=== PATIENT | female | born 1995 | race Caucasian/White ===

== ENCOUNTER 2018-12-12 17:10 | Emergency (ER) | payer SELFPAY ==
[~2018-12-12] VITALS: Ht 157.5 cm; Wt 62.7 kg
[2018-12-12 17:12] VITALS: BP 121/64; TEMP 98.4
[2018-12-12] MEDS ORDERED: LEXAPRO 10MG10 MG PO (19:01)
[2018-12-12] MEDS ORDERED: AMBIEN 5MG TABLE5 MG PO (19:02)
[2018-12-12 21:27] VITALS: PULSE 75
== END 2018-12-12 21:30 | disposition home or self-care (01) ==
LOC: COL.ER 17:10
DX: S16.1XXA Strain of muscle, fascia and tendon at neck level, initial encounter (principal); F32.9 Major depressive disorder, single episode, unspecified; F43.10 Post-traumatic stress disorder, unspecified; F40.10 Social phobia, unspecified; R40.2412 Glasgow coma scale score 13-15, at arrival to emergency department; V43.52XA Car driver injured in collision with other type car in traffic accident, initial encounter